=== PATIENT | female | born 1990 | race Caucasian/White ===

== ENCOUNTER 2017-07-10 20:27 | Emergency (ER) | payer MEDICAID | END 2017-07-10 21:24 | disposition home or self-care (01) | LOC: D.ER 20:27 | DX: K08.89 Other specified disorders of teeth and supporting structures (principal); K04.7 Periapical abscess without sinus; F17.200 Nicotine dependence, unspecified, uncomplicated ==

== ENCOUNTER 2018-07-19 23:05 | Emergency (ER) | payer MEDICAID ==
[~2018-07-19] VITALS: Ht 149.9 cm; Wt 81.8 kg
[2018-07-19 23:09] VITALS: BP 114/72; Ht 149.9 cm; Wt 81.8 kg
[2018-07-19] MEDS ORDERED: CIPRO HC OTIC S10 ML LEFT EAR (23:19)
[2018-07-19] MEDS ORDERED: NORCO 5/325 TAB1 TAB PO (23:19)
== END 2018-07-19 23:44 | disposition home or self-care (01) ==
LOC: D.ER 23:05
DX: H60.502 Unspecified acute noninfective otitis externa, left ear (principal)

== ENCOUNTER 2019-09-18 17:05 | Emergency (ER) | payer MEDICAID ==
[~2019-09-18] VITALS: Ht 149.9 cm; Wt 77.3 kg
[~2019-09-18 17:05] MED LIST: CIPRO HC OTIC S10 ML LEFT EAR; NORCO 5/325 TAB1 TAB PO
[2019-09-18 17:29] VITALS: Ht 149.9 cm; Wt 77.3 kg
[2019-09-18] MEDS ORDERED: ZOFRAN ODT4 MG/UDTAB PO (19:50)
[2019-09-18] MEDS ORDERED: KEFLEX500 MG PO (19:50)
[2019-09-18 20:34] VITALS: BP 120/65
== END 2019-09-18 20:35 | disposition home or self-care (01) ==
LOC: D.ER 17:05
DX: J02.0 Streptococcal pharyngitis (principal); R11.0 Nausea; J02.9 Acute pharyngitis, unspecified; Z72.0 Tobacco use; Z95.0 Presence of cardiac pacemaker

== ENCOUNTER 2019-10-02 00:04 | Emergency (ER) | payer MEDICAID ==
[~2019-10-02] VITALS: Ht 149.9 cm; Wt 77.3 kg
[~2019-10-02 00:04] MED LIST changes: +KEFLEX500 MG PO; +ZOFRAN ODT4 MG/UDTAB PO
[2019-10-02 00:07] VITALS: Ht 149.9 cm; Wt 77.3 kg
[2019-10-02] MEDS ORDERED: CLEOCIN HCL300 MG PO (01:17)
[2019-10-02] MEDS ORDERED: NAPROSYN500 MG PO (01:19)
[2019-10-02 02:00] VITALS: BP 120/64
== END 2019-10-02 02:00 | disposition home or self-care (01) ==
LOC: D.ER 00:04
DX: K04.7 Periapical abscess without sinus (principal); K08.89 Other specified disorders of teeth and supporting structures; Z95.0 Presence of cardiac pacemaker; Z72.0 Tobacco use

== ENCOUNTER 2020-03-22 04:44 | Emergency (ER) | payer MEDICAID ==
[~2020-03-22] VITALS: Ht 149.9 cm; Wt 81.8 kg
[~2020-03-22 04:44] MED LIST changes: +CLEOCIN HCL300 MG PO; +NAPROSYN500 MG PO
[2020-03-22 04:47] VITALS: BP 140/89; Ht 149.9 cm; Wt 81.8 kg
[2020-03-22] MEDS ORDERED: METHOCARBAMOL500 MG PO (04:49)
[2020-03-22] MEDS ORDERED: GABAPENTIN100 MG PO (04:50)
[2020-03-22] MEDS ORDERED: CLINDAMYCIN HC300 MG PO (05:07)
[2020-03-22] MEDS ORDERED: NORCO 7.5-3251 EACH GT (05:07)
== END 2020-03-22 05:19 | disposition home or self-care (01) ==
LOC: D.ER 04:44
DX: K08.89 Other specified disorders of teeth and supporting structures (principal); K04.7 Periapical abscess without sinus; Z95.0 Presence of cardiac pacemaker